=== PATIENT | female | born 1940 | race Caucasian/White ===

== ENCOUNTER 2018-05-20 16:04 | Emergency (ER) | payer OTHER ==
[~2018-05-20] VITALS: Ht 170.2 cm; Wt 85.9 kg
[~2018-05-20 16:04] MED LIST: ASPI81TA28 PO; BENA40TA6 PO; COEN100C11 PO; DICY20TA35 PO; DXY100 PO; IBUP600T44 PO; KFL500 PO; NRN100 PO; OXYC-609 PO; PLN5 PO
[2018-05-20 16:07] VITALS: TEMP 36.5
[2018-05-20] MEDS ORDERED: PIPERACILLIN/TAZOBACTAM 4.5 GM/100ML D5W IV STA (16:23)
[2018-05-20] MEDS ORDERED: SODIUM CHLORIDE 0.9% 1000ML 1,000 ML IV STA ×2 (16:23→17:49)
[2018-05-20] MEDS ORDERED: SODIUM CHLORIDE 0.9% 1000ML 1,000 ML IV ONE (16:23)
--- NOTE | 2018-05-20 16:34 | EMERGENCY ROOM VISIT NOTE ---
History Report prepared by Ignacio: Stanton Estrada Under the Supervision of: Dr. Piotr Duncan M.D. First contact with patient: 16:10 Chief Complaint: FEVER Stated Complaint: FEVER, TROUBLE EATING/DRINKING CAUSE PAIN History of Present Illness The patient is a 77 year old female who presents to the Emergency Room with complaints of fever, abdominal pain with eating and drinking, and diarrhea beginning 4 days ago. The patient reports that on April 30 she had her spleen and part of her pancreas removed due to suspected pancreatic cancer. She reports that she left on the , and noted no major complaints aside from constipation. She states that 4 days ago she began to have diarrhea and abdominal pain with eating and drinking. She also notes that she was given nausea medication but has not vomited. She notes a fever of 102.2 last night, and states that the entire day today it has been 100. She denies headache, chest pain, or shortness of breath. She states that she has not been drinking fluids. She also reports deep swelling in her legs. She states that the fluid from the drain on her abdomen was clear earlier today. Source of History: patient Onset: 4 days ago Position: abdomen, other (global) Symptom Intensity: fever 102.2 last night Quality: other (diarrhea, fever) Modifying Factors (Worsening): eating, drinking Associated Symptoms: No SOB, No vomiting Review of Systems See HPI for pertinent positives & negatives. A total of 10 systems reviewed and were otherwise negative. Past Medical & Surgical Medical Problems: (1) Breast CA (2) Carotid stenosis (3) Hyperlipidemia (4) Hypertension (5) Hypothyroidism Nos (6) IBS (irritable bowel syndrome) (7) Sciatica (8) Sepsis Surgical Problems: (1) H/O cystoscopy (2) H/O esophagogastroduodenoscopy (3) H/O mastectomy (4) H/O total hysterectomy (5) Postoperative state Old medical records were reviewed. Nurse's notes were reviewed and I agree with. Family History FHx: gallbladder disease FHx: lung disease Hypertension Kidney disease Kidney stones Seizures Social History Smoking Status: Never Smoker Alcohol Use: none Marital Status: Housing Status: lives with significant other Occupation Status: retired Current/Historical Medications Scheduled Aspirin (Aspirin Ec), 81 MG PO DAILY Benazepril Hcl (Lotensin), 40 MG PO DAILY Coenzyme Q10 (Ubidecarenone) (Coq-10), 100 MG PO DAILY Felodipine (Felodipine ER), 10 MG PO DAILY Gabapentin (Gabapentin), 300 MG PO HS Scheduled PRN Dicyclomine Hcl (Dicyclomine Hcl), 20 MG PO QID PRN for ABD PAIN Allergies Coded Allergies: Ciprofloxacin (Verified Allergy, Unknown, UNKNOWN, 05/20/18) Metronidazole (Verified Allergy, Unknown, UNKNOWN, 05/20/18) Statins (Verified Allergy, Unknown, ., 05/20/18) Physical Exam Vital Signs Date Time Temp Pulse Resp B/P (MAP) Pulse Ox O2 Delivery O2 Flow Rate FiO2 05/20/18 21:11 97 16 159/80 96 05/20/18 19:31 94 16 172/77 94 Room Air 05/20/18 19:05 91 21 173/77 96 Room Air 05/20/18 18:33 87 20 156/77 95 Room Air 05/20/18 17:38 87 22 163/80 96 Room Air 05/20/18 16:56 95 Room Air 05/20/18 16:47 83 20 135/67 95 Room Air 05/20/18 16:33 89 05/20/18 16:07 36.5 93 18 118/65 97 Room Air Physical Exam General: Non-ill appearing older female in no acute distress. HEENT: Normal cephalic atraumatic. Pupils are equal round and reactive to light. Extraocular movements are intact. Oropharynx is pink with moist mucous membranes. No swelling of the mouth lips or tongue. Neck: Supple with a midline trachea. No meningeal signs or stiffness, no JVD or bruits. No Stridor. Chest: Clear to auscultation bilaterally. No wheezes or rhonchi. No increased work of breathing. Heart: regular rate and rhythm. Abdomen: Soft, nondistended without rebound guarding or rigidity. Drain in left abdomen that has purulent drainage of about 25 cc. Minimal redness and tenderness around drain site. Extremities: No cyanosis clubbing or edema. No calf tenderness or assymetry Spine/Back. Non tender to palpation. No CVA tenderness Skin: Good turgor without rashes. Neurologic exam: Cranial nerves two through 12 are intact. Motor and sensation are intact and symmetrical throughout. non ill older female abd: drain in left abdomen that has purulen tdrainage of 25 ccs minimal redness around rain site,minimal tend Medical Decision & Procedures ER Provider Diagnostic Interpretation: Radiology results as stated below per my review and radiologist interpretation: ABDOMEN AND PELVIS CT WITH IV CONTRAST CT DOSE: 623.61 mGy.cm HISTORY: Left-sided abdominal pain. eval for post-op abcess TECHNIQUE: Multiaxial CT images of the abdomen and pelvis were performed following the use of intravenous contrast. A dose lowering technique was utilized adhering to the principles of ALARA. COMPARISON STUDY: Abdomen and pelvis CT 09/07/2015. FINDINGS: Stable 4 mm nodule within the left lower lobe. Therefore, this is considered to be benign. No pneumoperitoneum. No pneumatosis. L5-S1 posterior decompression and fusion. Hepatic steatosis. The spleen is surgically absent. The adrenal glands and gallbladder are unremarkable. No hydronephrosis. There are few scattered hypodense lesions seen within the liver. These are similar to the prior study and likely represent cysts. Pancreatic tail is surgically absent. There is a 1.6 cm cystic lesion within the neck of the pancreas, unchanged. There is suture material adjacent to this cystic focus. The tip of the drain terminates adjacent to this cystic lesion. There is also a 1 cm ill-defined focus of fluid at the tip of the surgical drain. The surgical drain is seen within the left upper quadrant and demonstrates surrounding fat stranding. No large abscess identified. The main portal vein is patent. Subcentimeter retroperitoneal lymph nodes do not meet CT criteria for pathologic involvement. The bladder is unremarkable. The uterus is surgically absent. There is moderate rectal wall thickening with mild perirectal edema/fat stranding. There is also mild thickening of the distal descending colon and proximal sigmoid colon. This soft tissue thickening abuts the left ovary. This likely represents a acute diverticulitis. However, a colitis could also have a similar appearance. No perforation identified. Multiple colonic diverticula. Normal appendix. No evidence for bowel obstruction. Punctate calcifications within the head of the pancreas consistent with chronic pancreatitis changes. This remains unchanged. Mild thickening of the gastric antrum is likely reactive. Mild inflammatory change adjacent to the resection site of the pancreas. IMPRESSION: 1. Interval distal pancreatectomy and splenectomy. There is a surgical drain within the left upper quadrant with the tip terminating anterior to the resection site of the pancreas. There is a 1 cm ill-defined fluid collection at the tip of the surgical drain. This favors postoperative fluid. A small developing abscess could also have a similar appearance. No large abscess identified. 2. No significant change in the 1.6 cm cystic lesion at the neck of the pancreas. This is adjacent to the resection edge of the pancreas. 3. Inflammatory change within the left upper quadrant suggesting postoperative change. 4. Mild thickening of the distal descending colon and proximal sigmoid colon which favors a mild acute diverticulitis. No perforation identified. 5. There is also moderate thickening of the rectal wall consistent with a nonspecific proctitis. 6. Mild inflammatory change adjacent to the resection site of the pancreas favoring postoperative change. However, an acute pancreatitis could also have a similar appearance. Electronically signed by: Thierry Mascorro M.D. 05/20/2018 5:47 PM Chest x-ray per my interpretation reveals no pneumothorax, failure, or infiltrate. CHEST ONE VIEW PORTABLE HISTORY: Fever. Sepsis COMPARISON: Chest 06/17/2016. FINDINGS: The lungs are clear. Cardiac silhouette is normal in size. No pleural effusions. No pneumothorax. There are suggestion of a partially visualized catheter within the left upper quadrant. IMPRESSION: No acute process. Electronically signed by: Thierry Mascorro M.D. 05/20/2018 4:46 PM Laboratory Results 05/20/18 16:25 Red Blood Count 4.09, Mean Corpuscular Volume 93.4, Mean Corpuscular Hemoglobin 31.5, Mean Corpuscular Hemoglobin Concent 33.8, Mean Platelet Volume 10.4, Neutrophils (%) (Auto) 78.5, Lymphocytes (%) (Auto) 11.3, Monocytes (%) (Auto) 8.9, Eosinophils (%) (Auto) 0.9, Basophils (%) (Auto) 0.1, Neutrophils # (Auto) 18.42, Lymphocytes # (Auto) 2.66, Monocytes # (Auto) 2.10, Eosinophils # (Auto) 0.21, Basophils # (Auto) 0.03 05/20/18 16:25 Test 05/20/18 16:25 05/20/18 16:38 05/20/18 16:51 White Blood Count 23.50 K/uL (4.8-10.8) Red Blood Count 4.09 M/uL (4.2-5.4) Hemoglobin 12.9 g/dL (12.0-16.0) Hematocrit 38.2 % (37-47) Mean Corpuscular Volume 93.4 fL (80-100) Mean Corpuscular Hemoglobin 31.5 pg (25-34) Mean Corpuscular Hemoglobin Concent 33.8 g/dl (32-36) Platelet Count 518 K/uL (130-400) Mean Platelet Volume 10.4 fL (7.4-10.4) Neutrophils (%) (Auto) 78.5 % Lymphocytes (%) (Auto) 11.3 % Monocytes (%) (Auto) 8.9 % Eosinophils (%) (Auto) 0.9 % Basophils (%) (Auto) 0.1 % Neutrophils # (Auto) 18.42 K/uL (1.4-6.5) Lymphocytes # (Auto) 2.66 K/uL (1.2-3.4) Monocytes # (Auto) 2.10 K/uL (0.11-0.59) Eosinophils # (Auto) 0.21 K/uL (0-0.5) Basophils # (Auto) 0.03 K/uL (0-0.2) RDW Standard Deviation 46.2 fL (36.4-46.3) RDW Coefficient of Variation 13.4 % (11.5-14.5) Immature Granulocyte % (Auto) 0.3 % Immature Granulocyte # (Auto) 0.08 K/uL (0.00-0.02) Prothrombin Time 11.3 SECONDS (9.0-12.0) Prothromb Time International Ratio 1.1 (0.9-1.1) Activated Partial Thromboplast Time 29.6 SECONDS (21.0-31.0) Partial Thromboplastin Ratio 1.1 Est Creatinine Clear Calc Drug Dose 50.2 ml/min Estimated GFR () 57.5 Estimated GFR (Non- 49.6 BUN/Creatinine Ratio 21.4 (10-20) Calcium Level 9.9 mg/dl (8.5-10.1) Total Bilirubin 0.8 mg/dl (0.2-1) Aspartate Amino Transf (AST/SGOT) 47 U/L (15-37) Alanine Aminotransferase (ALT/SGPT) 47 U/L (12-78) Alkaline Phosphatase 95 U/L (45-117) Total Protein 8.4 gm/dl (6.4-8.2) Albumin 3.0 gm/dl (3.4-5.0) Globulin 5.4 gm/dl (2.5-4.0) Albumin/Globulin Ratio 0.6 (0.9-2) Amylase Level 34 U/L (25-115) Lipase 181 U/L (73-393) Bedside Lactic Acid Venous 1.46 mmol/L (0.90-1.70) Bedside Hemoglobin 13.9 g/dl (12.0-16.0) Bedside Hematocrit 41 % (37-47) Bedside Sodium 136 mEq/L (135-144) Bedside Potassium 3.3 mEq/L (3.3-5.0) Bedside Chloride 99 mEq/L (101-112) Bedside Total CO2 23 mEq/l (24-31) Anion Gap 18.0 mmol/L (16-25) Bedside Blood Urea Nitrogen 23 mg/dl (7-18) Bedside Creatinine 0.9 mg/dl (0.6-1.3) Bedside Glucose (other) 138 mg/dl (70-99) Bedside Ionized Calcium (Lizz) 1.13 mmol/l (1.12-1.32) Laboratory studies as stated above per my review. Medications Administered Medications (Trade) Dose Ordered Sig/Isaias Route Start Time Stop Time Status Last Admin Dose Admin Sodium Chloride 1,000 ml @ 999 mls/hr Q1H1M STAT IV 05/20/18 16:23 05/20/18 17:23 DC 05/20/18 16:34 999 MLS/HR Sodium Chloride 1,000 ml @ 150 mls/hr Q6H40M ONCE IV 05/20/18 16:23 05/20/18 21:57 DC 05/20/18 16:35 150 MLS/HR Piperacillin Sod/ Tazobactam Sod (Zosyn Iv) 4.5 gm NOW STAT IV 05/20/18 16:23 05/20/18 16:27 DC 05/20/18 16:34 4.5 GM Sodium Chloride 1,000 ml @ 999 mls/hr Q1H1M STAT IV 05/20/18 17:49 05/20/18 18:49 DC 05/20/18 18:09 999 MLS/HR Vancomycin HCl 1750 mg/Sodium Chloride 535 ml @ 200 mls/hr TODAY@1830 ONCE IV 05/20/18 18:30 05/20/18 21:10 DC 05/20/18 18:54 200 MLS/HR ECG Per My Interpretation Indication: abdominal pain Rate (beats per minute): 85 Rhythm: normal sinus Findings: no acute ischemic change, no ectopy Comparison ECG Date: 06/19/2016 Change: no significant change ED Course 1614: Past medical records reviewed. The patient was evaluated in room C10, and a complete history and physical examination were performed. 1623: Ordered Zosyn 4.5 gm IV, Sodium Chloride 1000 ml @ 150 mls/hr IV, Sodium Chloride 1000 ml @ 999 mls/hr IV 1631: The patient appears stable. An IV is being placed and blood work will be done. She is going for a CXR. 1655: The patient appears comfortable and is normotensive and non-tachycardic. She will go for a CT scan. 1735: I updated with the patient, who appears to be comfortable. 1749: Ordered Sodium Chloride 1000 ml @ 999 mls/hr IV 1800: I checked on the patient, who is doing well. Awaiting call from surgeon. 1807: I spoke with Dr. Renee - Surgery. The patient will be accepted for transfer. 1827: The patient will begin transport 1830: Ordered Vancomycin HCl 1750 mg/Sodium Chloride 535 ml @ 200 mls/hr IV Medical Decision Differentials include, but are not limited to; sepsis, post-op complication, infection, electrolyte or metabolic abnormalities. This patient comes in as described above. She had a significant abdominal surgery done at [facility] on April 30 where she had laparoscopic pancreatic tail resection and splenectomy. She had been doing well until about 4 days ago and has had abdominal pain with eating. she has not been able to eat she also had fevers starting at least yesterday. today she has had a low-grade temperature about 100 although she has been taking Tylenol and her T-max was 102.2 last evening. He still has a ALISTAIR drain in the left abdomen and it has a moderate amount of purulent material in it and the family says that it was clear prior. She does not appear to have a cellulitis of the skin. Her abdomen is mildly tender but without peritonitis. Given the fact that she has had a splenectomy and has had ongoing fevers, I was concerned for sepsis and infection particularly with the increasing and purulent discharge in her drain. I reviewed her allergies and she tells me she is okay with penicillin she was given Zosyn 4.5 g IV and a complete sepsis workup was done she was hydrated with IV normal saline. She was initially afebrile here and normotensive. Multiple blood testing was obtained. I have reviewed her notes from [facility] and reviewed the op note as well as the discharge summary. She did receive a total of 2 L normal saline while she was here. Additionally added vancomycin IV and consulted the pharmacy for the dosing. Her white count was significant elevated 23,000 however her lactic acid was not elevated. She has no significant electrolyte or metabolic abnormality. She has normal renal function. Chest x-ray does not show pneumonia. She has nothing she has cardiac disease. I did a CAT scan with IV contrast and it shows a small 1 cm fluid collection which could be postoperative or potentially abscess. I am concerned that she has had a fever as well as a high white count that she could be septic and have a postop infection. I have discussed this with the on-call [facility] surgeon and she agrees and accepts the patient in transfer. The patient was sent by ambulance. She remained normotensive while she was here and has been fluid resuscitated and had broad-spectrum IV antibiotics as well as cultures. The patient has were happy the plan and she was transferred to [place] where she had her surgery and is followed by her surgeons there. Medication Reconcilliation Current Medication List: was personally reviewed by me Blood Pressure Screening Patient's blood pressure: Normal blood pressure Blood pressure disposition: Did not require urgent referral Consults Time Called: 1800 Consulting Physician: Dr. Víctor Madison Returned Call: [address] Víctor Madison. The patient will be accepted for transfer. Impression Primary Impression: Sepsis Additional Impression: Postoperative abscess Critical Care I have personally spent greater than 45 minutes of critical care time in the direct management of this patient. This includes bedside care, interpretation of diagnostic studies, and testing, discussion with consultants, patient, and family members, and other required patient management activities. This 45 minutes is in excess of all separately billable procedures. Scribe Attestation The scribe's documentation has been prepared under my direction and personally reviewed by me in its entirety. I confirm that the note above accurately reflects all work, treatment, procedures, and medical decision making performed by me. Departure Information Dispostion Transfer Acute Care Facility Referrals Carlitos Powell D.O. (PCP) Patient Instructions My [facility] Problem Qualifiers
[2018-05-20 16:46] LABS: BASO % 0.1 %; BASO ABS # 0.03 K/uL (0-0.2); EOS % 0.9 %; EOS ABS # 0.21 K/uL (0-0.5); HEMATOCRIT 38.2 % (37-47); HEMOGLOBIN 12.9 g/dL (12.0-16.0); IG# 0.08 K/uL (0.00-0.02); LYMPH % 11.3 %; LYMPH ABS # 2.66 K/uL (1.2-3.4); MEAN CELL VOLUME 93.4 fL (80-100); MEAN CORPUSCULAR HEMOGLOBIN 31.5 pg (25-34); MEAN CORPUSCULAR HGB CONC 33.8 g/dl (32-36); MEAN PLATELET VOLUME 10.4 fL (7.4-10.4); MONO % 8.9 %; NEUT % 78.5 %; NEUT ABS # 18.42 K/uL (1.4-6.5); PLATELET COUNT 518 K/uL (130-400); RED CELL DISTRIBUTION WIDTH CV 13.4 % (11.5-14.5); RED CELL DISTRIBUTION WIDTH SD 46.2 fL (36.4-46.3)
--- NOTE | 2018-05-20 16:47 | DIAGNOSTIC IMAGING REPORT ---
CHEST ONE VIEW PORTABLE HISTORY: Fever. Sepsis COMPARISON: Chest 06/17/2016. FINDINGS: The lungs are clear. Cardiac silhouette is normal in size. No pleural effusions. No pneumothorax. There are suggestion of a partially visualized catheter within the left upper quadrant. IMPRESSION: No acute process. Electronically signed by: Thierry Mascorro M.D. 05/20/2018 4:46 PM Dictated Date/Time: 05/20/2018 4:44 PM
[2018-05-20] MEDS ORDERED: PLN/10 PO (16:48)
[2018-05-20] MEDS ORDERED: DICY20TA10 PO (16:48)
[2018-05-20 16:56] VITALS: O2SAT 95
[2018-05-20 16:57] VITALS: Ht 170.2 cm; Wt 85.9 kg
[2018-05-20 16:58] LABS: INR 1.1 (0.9-1.1); PTT PATIENT 29.6 SECONDS (21.0-31.0)
[2018-05-20 17:00] LABS: ISTAT CREATININE 0.9 mg/dl (0.6-1.3); ISTAT IONIZED CALCIUM 1.13 mmol/l (1.12-1.32); ISTAT POTASSIUM 3.3 mEq/L (3.3-5.0)
[2018-05-20 17:06] LABS: CALCIUM 9.9 mg/dl (8.5-10.1); CREATININE 1.09 mg/dl (0.60-1.20); POTASSIUM 3.3 mmol/L (3.5-5.1); TOTAL PROTEIN 8.4 gm/dl (6.4-8.2)
[2018-05-20] MEDS ORDERED: OPTIRAY 320 IV PRN (17:15)
--- NOTE | 2018-05-20 17:48 | DIAGNOSTIC IMAGING REPORT ---
ABDOMEN AND PELVIS CT WITH IV CONTRAST CT DOSE: 623.61 mGy.cm HISTORY: Left-sided abdominal pain. eval for post-op abcess TECHNIQUE: Multiaxial CT images of the abdomen and pelvis were performed following the use of intravenous contrast. A dose lowering technique was utilized adhering to the principles of ALARA. COMPARISON STUDY: Abdomen and pelvis CT 09/07/2015. FINDINGS: Stable 4 mm nodule within the left lower lobe. Therefore, this is considered to be benign. No pneumoperitoneum. No pneumatosis. L5-S1 posterior decompression and fusion. Hepatic steatosis. The spleen is surgically absent. The adrenal glands and gallbladder are unremarkable. No hydronephrosis. There are few scattered hypodense lesions seen within the liver. These are similar to the prior study and likely represent cysts. Pancreatic tail is surgically absent. There is a 1.6 cm cystic lesion within the neck of the pancreas, unchanged. There is suture material adjacent to this cystic focus. The tip of the drain terminates adjacent to this cystic lesion. There is also a 1 cm ill-defined focus of fluid at the tip of the surgical drain. The surgical drain is seen within the left upper quadrant and demonstrates surrounding fat stranding. No large abscess identified. The main portal vein is patent. Subcentimeter retroperitoneal lymph nodes do not meet CT criteria for pathologic involvement. The bladder is unremarkable. The uterus is surgically absent. There is moderate rectal wall thickening with mild perirectal edema/fat stranding. There is also mild thickening of the distal descending colon and proximal sigmoid colon. This soft tissue thickening abuts the left ovary. This likely represents a acute diverticulitis. However, a colitis could also have a similar appearance. No perforation identified. Multiple colonic diverticula. Normal appendix. No evidence for bowel obstruction. Punctate calcifications within the head of the pancreas consistent with chronic pancreatitis changes. This remains unchanged. Mild thickening of the gastric antrum is likely reactive. Mild inflammatory change adjacent to the resection site of the pancreas. IMPRESSION: 1. Interval distal pancreatectomy and splenectomy. There is a surgical drain within the left upper quadrant with the tip terminating anterior to the resection site of the pancreas. There is a 1 cm ill-defined fluid collection at the tip of the surgical drain. This favors postoperative fluid. A small developing abscess could also have a similar appearance. No large abscess identified. 2. No significant change in the 1.6 cm cystic lesion at the neck of the pancreas. This is adjacent to the resection edge of the pancreas. 3. Inflammatory change within the left upper quadrant suggesting postoperative change. 4. Mild thickening of the distal descending colon and proximal sigmoid colon which favors a mild acute diverticulitis. No perforation identified. 5. There is also moderate thickening of the rectal wall consistent with a nonspecific proctitis. 6. Mild inflammatory change adjacent to the resection site of the pancreas favoring postoperative change. However, an acute pancreatitis could also have a similar appearance. Electronically signed by: Thierry Mascorro M.D. 05/20/2018 5:47 PM Dictated Date/Time: 05/20/2018 5:35 PM
[2018-05-20] MEDS ORDERED: VANCOMYCIN CONSULT ACTIVE PRN (18:00)
[2018-05-20] MEDS ORDERED: VANCOMYCIN IV 1,750 MG in SODIUM CHLORIDE 0.9% 500ML 500 ML IV ONE (18:30)
[2018-05-20 21:11] VITALS: BP 159/80; PULSE 97; O2SAT 96
== END 2018-05-20 21:12 | disposition short-term general hospital (02) ==
LOC: C.EDB 16:06 → C.EDC 21:12
DX: T81.4XXA Infection following a procedure, initial encounter (principal); A41.9 Sepsis, unspecified organism; Z90.81 Acquired absence of spleen; Z90.411 Acquired partial absence of pancreas; I10 Essential (primary) hypertension; Z79.82 Long term (current) use of aspirin; Z88.1 Allergy status to other antibiotic agents; Z88.8 Allergy status to other drugs, medicaments and biological substances